=== PATIENT | male | born 1970 | race Caucasian/White ===

== ENCOUNTER 2021-05-15 10:09 | Outpatient (REF) | payer BC, SELFPAY ==
[2021-05-15 12:35] LABS: Hematocrit 42.5 % (42-52); Hemoglobin 14.1 g/dl (14.0-18.0); Mean Corpuscular HGB Conc 33.2 g/dl (31.0-36.0); Mean Corpuscular Hemoglobin 30.3 pg (27.0-33.0); Mean Corpuscular Volume 91.2 fL (80-98); Mean Platelet Volume 9.8 fL (9.4-12.4); Platelet Count 317 X10*3/uL (160-400); Red Blood Count 4.66 X10*6/uL (4.60-5.80); Red Cell Distribution Width 13.2 % (11.0-16.0); White Blood Count 5.5 X10*3/uL (4.8-10.8)
[2021-05-15 13:04] LABS: Alanine Aminotransferase 12 U/L (0-40); Albumin Level 4.3 g/dL (3.5-5.0); Alkaline Phosphatase 50 U/L (39-117); Anion Gap 13 (12-20); Aspartate Amino Transferase 21 U/L (5-37); Bilirubin Total 0.7 mg/dL (0.0-1.0); Blood Urea Nitrogen 19 mg/dL (9-16); Calcium 9.6 mg/dL (8.4-10.2); Carbon Dioxide 29 mmol/L (22-29); Chloride 103 mmol/L (96-108); Cholesterol 213 mg/dL; Estimated Glomerular Filt Rate > 60; Glucose Fasting 89 mg/dL (60-99); HDL Cholesterol 60 mg/dL; LDL Cholesterol Calculated 140 mg/dl; Potassium 5.1 mmol/L (3.3-5.1); Sodium 140 mmol/L (135-145); Total Protein 6.8 g/dL (6.5-8.0); Triglycerides 69 mg/dL
[2021-05-15 13:24] LABS: Prostate Specific Antigen 0.56 ng/mL (<0.05-4.0)
== END 2021-05-15 10:10 | disposition home or self-care (01) ==
LOC: HO.MANLDS 10:09
PROVIDERS: PCP Internal Medicine; Visit Provider Internal Medicine
DX: Z00.00 Encounter for general adult medical examination without abnormal findings (principal); Z12.5 Encounter for screening for malignant neoplasm of prostate
CPT/HCPCS: 36415; 80053; 80061; 84153; 85027

== ENCOUNTER 2022-10-21 12:02 | Outpatient (REF) | payer BC, SELFPAY ==
[2022-10-21 14:10] LABS: MANUAL DIFF FLAG NO
[2022-10-21 14:15] LABS: Basophils Percent Auto 0.6 % (0-2); Eosinophils Absolute Auto 0.1 X10*3/uL (0.0-0.4); Eosinophils Percent Auto 2.2 % (0-4); Hematocrit 44.3 % (42.0-52.0); Hemoglobin 14.7 g/dl (14.0-18.0); Imm Gran Abs Auto 0.07 X10*3/uL (0.00-0.03); Imm Gran Pct Auto 1.1 % (0.0-0.4); Lymphocytes Absolute Auto 1.2 X10*3/uL (1.2-4.9); Lymphocytes Percent Auto 19.6 % (20-40); Mean Corpuscular HGB Conc 33.2 g/dl (31.0-36.0); Mean Corpuscular Hemoglobin 29.6 pg (27.0-33.0); Mean Corpuscular Volume 89.1 fL (80.0-98.0); Mean Platelet Volume 9.9 fL (9.4-12.4); Monocytes Absolute Auto 0.7 X10*3/uL (0.1-1.2); Monocytes Percent Auto 10.3 % (2-11); Neutrophils Absolute Auto 4.2 x10*3/uL (2.0-8.3); Neutrophils Percent Auto 66.2 % (45-73); Platelet Count 299 X10*3/uL (160-400); Red Blood Count 4.97 X10*6/uL (4.60-5.80); Red Cell Distribution Width 13.2 % (11.0-16.0); White Blood Count 6.3 X10*3/uL (4.8-10.8)
[2022-10-21 14:51] LABS: Alanine Aminotransferase 13 U/L (0-40); Albumin Level 4.4 g/dL (3.5-5.0); Alkaline Phosphatase 52 U/L (39-117); Anion Gap 13 (12-20); Aspartate Amino Transferase 23 U/L (5-37); Bilirubin Total 0.8 mg/dL (0.0-1.0); Blood Urea Nitrogen 14 mg/dL (9-16); Calcium 9.4 mg/dL (8.4-10.2); Carbon Dioxide 31 mmol/L (22-29); Chloride 101 mmol/L (96-108); Cholesterol 227 mg/dL; Estimated Glomerular Filt Rate > 60; Glucose Fasting 77 mg/dL (60-99); HDL Cholesterol 61 mg/dL; LDL Cholesterol Calculated 155 mg/dl; Potassium 4.8 mmol/L (3.3-5.1); Sodium 140 mmol/L (135-145); Total Protein 6.8 g/dL (6.5-8.0); Triglycerides 59 mg/dL
[2022-10-21 15:10] LABS: Prostate Specific Antigen 0.73 ng/mL (<0.05-4.0); Thyroid Stimulating Hormone 3.18 uIU/mL (0.32-4.0); Vitamin D 25-OH Total 20.7 ng/mL (>30)
== END 2022-10-21 12:03 | disposition home or self-care (01) ==
LOC: HO.MANLDS 12:02
PROVIDERS: Visit Provider Internal Medicine
DX: Z00.00 Encounter for general adult medical examination without abnormal findings (principal); Z12.5 Encounter for screening for malignant neoplasm of prostate; E78.5 Hyperlipidemia, unspecified; E55.9 Vitamin D deficiency, unspecified; R53.83 Other fatigue
CPT/HCPCS: 36415; 80053; 80061; 82306; 84153; 84443; 85025

== ENCOUNTER 2023-09-29 09:59 | Outpatient (REF) | payer BC, SELFPAY ==
[2023-09-29 13:29] LABS: MANUAL DIFF FLAG NO
[2023-09-29 13:47] LABS: Basophils Percent Auto 0.7 % (0-2); Eosinophils Absolute Auto 0.1 X10*3/uL (0.0-0.4); Eosinophils Percent Auto 2.7 % (0-4); Hematocrit 42.4 % (42.0-52.0); Hemoglobin 14.1 g/dl (14.0-18.0); Imm Gran Abs Auto 0.01 X10*3/uL (0.00-0.03); Imm Gran Pct Auto 0.2 % (0.0-0.4); Lymphocytes Absolute Auto 0.9 X10*3/uL (1.2-4.9); Lymphocytes Percent Auto 19.8 % (20-40); Mean Corpuscular HGB Conc 33.3 g/dl (31.0-36.0); Mean Corpuscular Hemoglobin 29.8 pg (27.0-33.0); Mean Corpuscular Volume 89.6 fL (80.0-98.0); Mean Platelet Volume 9.6 fL (9.4-12.4); Monocytes Absolute Auto 0.5 X10*3/uL (0.1-1.2); Neutrophils Absolute Auto 2.9 x10*3/uL (2.0-8.3); Neutrophils Percent Auto 64.6 % (45-73); Platelet Count 308 X10*3/uL (160-400); Red Blood Count 4.73 X10*6/uL (4.60-5.80); Red Cell Distribution Width 13.2 % (11.0-16.0); White Blood Count 4.5 X10*3/uL (4.8-10.8)
[2023-09-29 14:58] LABS: Alanine Aminotransferase 11 U/L (0-40); Albumin Level 4.2 g/dL (3.5-5.0); Alkaline Phosphatase 46 U/L (39-117); Anion Gap 13 (12-20); Aspartate Amino Transferase 21 U/L (5-37); Bilirubin Total 0.6 mg/dL (0.0-1.0); Blood Urea Nitrogen 11 mg/dL (9-16); Calcium 9.6 mg/dL (8.4-10.2); Carbon Dioxide 30 mmol/L (22-29); Chloride 103 mmol/L (96-108); Cholesterol 210 mg/dL (<200); Estimated Glomerular Filt Rate > 60; Glucose Random 80 mg/dL (60-115); HDL Cholesterol 61 mg/dL (>40); LDL Cholesterol Calculated 140 mg/dL (<100); Potassium 4.4 mmol/L (3.3-5.1); Prostate Specific Antigen 0.74 ng/mL (<0.05-4.0); Sodium 142 mmol/L (135-145); Total Protein 6.9 g/dL (6.5-8.0); Triglycerides 46 mg/dL (<150)
[2023-09-29 15:07] LABS: Thyroid Stimulating Hormone 2.45 uIU/mL (0.32-4.0)
[2023-10-03 15:23] LABS: Testosterone, Total 282 ng/dL (250-1100)
== END 2023-09-29 10:00 | disposition home or self-care (01) ==
LOC: HO.MANLDS 09:59
PROVIDERS: Visit Provider Internal Medicine
DX: Z13.89 Encounter for screening for other disorder (principal)
CPT/HCPCS: 36415; 80053; 80061; 84153; 84403; 84443; 85025

== ENCOUNTER 2023-11-10 11:46 | Outpatient (REF) | payer BC, SELFPAY ==
[2023-11-10 13:55] LABS: MANUAL DIFF FLAG NO
[2023-11-10 14:01] LABS: Basophils Percent Auto 0.4 % (0-2); Eosinophils Absolute Auto 0.1 X10*3/uL (0.0-0.4); Eosinophils Percent Auto 1.3 % (0-4); Hematocrit 44.9 % (42.0-52.0); Imm Gran Abs Auto 0.05 X10*3/uL (0.00-0.03); Imm Gran Pct Auto 0.7 % (0.0-0.4); Lymphocytes Percent Auto 14.2 % (20-40); Mean Corpuscular HGB Conc 33.4 g/dl (31.0-36.0); Mean Corpuscular Hemoglobin 30.2 pg (27.0-33.0); Mean Corpuscular Volume 90.5 fL (80.0-98.0); Mean Platelet Volume 9.7 fL (9.4-12.4); Monocytes Absolute Auto 0.7 X10*3/uL (0.1-1.2); Monocytes Percent Auto 10.1 % (2-11); Neutrophils Percent Auto 73.3 % (45-73); Platelet Count 362 X10*3/uL (160-400); Red Blood Count 4.96 X10*6/uL (4.60-5.80); Red Cell Distribution Width 13.1 % (11.0-16.0); White Blood Count 6.8 X10*3/uL (4.8-10.8)
[2023-11-10 14:11] LABS: Estimated Average Glucose 103 mg/dL; Hemoglobin A1c % 5.2 % (<6.0)
[2023-11-10 14:24] LABS: Erythrocyte Sedimentation Rate 1 MM/HR (0-15)
[2023-11-10 14:31] LABS: Rheumatoid Factor 32.8 IU/mL (<15.0)
[2023-11-10 14:33] LABS: Parathyroid Hormone Intact 57.2 pg/mL (8.7-77.1)
[2023-11-10 14:40] LABS: C Reactive Protein < 0.10 mg/dL (< or = 0.50); Calcium 10.1 mg/dL (8.4-10.2); Iron 116 mcg/dL (45-160); Percent Iron Saturation 40 % (15-50); Total Iron Binding Capacity 290 mcg/dL (228-428); Unsaturated Iron Binding 174 ug/dL
[2023-11-10 14:56] LABS: Ferritin 459 ng/mL (20-250)
[2023-11-10 15:01] LABS: Folate 12.2 ng/mL (> or = 4.0); Vitamin B12 422 pg/mL (200-900)
[2023-11-11 17:48] LABS: Cyclic Citrullinated Peptide <16 UNITS
[2023-11-12 13:09] LABS: Anti Nuclear Antibody Screen NEGATIVE (NEGATIVE)
[2023-11-13 22:14] LABS: Antibody to SS-A Antigen <1.0 NEG AI (<1.0 NEG); Antibody to SS-B Antigen <1.0 NEG AI (<1.0 NEG)
== END 2023-11-10 11:47 | disposition home or self-care (01) ==
LOC: HO.MANLDS 11:46
PROVIDERS: Visit Provider Physician Assistant
DX: L63.8 Other alopecia areata (principal)
CPT/HCPCS: 36415; 82306; 82310; 82607; 82728; 82746; 83036; 83540; 83970; 85025; 85652; 86038; 86140; 86200; 86235; 86431

== ENCOUNTER 2024-03-19 14:01 | Outpatient (REF) | payer BC, SELFPAY ==
[2024-03-25 07:39] LABS: Testosterone, Total 399 ng/dL (250-1100)
== END 2024-03-19 14:02 | disposition home or self-care (01) ==
LOC: HO.MANLDS 14:01
PROVIDERS: Visit Provider Internal Medicine
DX: R53.83 Other fatigue (principal)
CPT/HCPCS: 36415; 84403

== ENCOUNTER 2025-01-25 11:44 | Outpatient (REF) | payer BC, SELFPAY ==
[2025-01-25 13:33] LABS: MANUAL DIFF FLAG NO
[2025-01-25 13:38] LABS: Basophils Percent Auto 0.3 % (0-2); Eosinophils Absolute Auto 0.1 X10*3/uL (0.0-0.4); Eosinophils Percent Auto 0.7 % (0-4); Hematocrit 40.3 % (42.0-52.0); Hemoglobin 14.1 g/dl (14.0-18.0); Imm Gran Abs Auto 0.08 X10*3/uL (0.00-0.03); Imm Gran Pct Auto 0.8 % (0.0-0.4); Lymphocytes Absolute Auto 1.2 X10*3/uL (1.2-4.9); Lymphocytes Percent Auto 11.1 % (20-40); Mean Corpuscular Hemoglobin 32.6 pg (27.0-33.0); Mean Corpuscular Volume 93.3 fL (80.0-98.0); Mean Platelet Volume 9.8 fL (9.4-12.4); Monocytes Absolute Auto 1.1 X10*3/uL (0.1-1.2); Monocytes Percent Auto 10.5 % (2-11); Neutrophils Absolute Auto 8.1 x10*3/uL (2.0-8.3); Neutrophils Percent Auto 76.6 % (45-73); Platelet Count 311 X10*3/uL (160-400); Red Blood Count 4.32 X10*6/uL (4.60-5.80); Red Cell Distribution Width 13.7 % (11.0-16.0); White Blood Count 10.5 X10*3/uL (4.8-10.8)
--- OUTSIDE RECORDS SUMMARY | 2025-01-25 14:04 | XMS_ITS | Data Portability ---
Author Organization [facility] , [facility]_Unsigned Documents Address [address] [place] [address] Assessment No assessment recorded. Plan of Treatment Reminders Order Date Submit Date Provider Last Modified By Organization Details Last Modified Time Details Appointments ANY 15 025 09:45AM Flaco Fritz MD Not available Not available Not available Lab None record ed. Referral None record ed. Procedures None record ed. Surgeries None record ed. Imaging None record ed. Medication Orders None record ed. Patient TargetsNo targets recorded. Patient InstructionsNo instructions recorded. Reason for Referral None Reported. Medical Equipment None Reported. Medications Name Sig Start Date Stop Date Status Note LastModified by Organization Details LastModified Time desonide 0.05 % topical cream APPLY SPARINGLY AND RUB GENTLY INTO THE AFFECTED AREA TWICE A DAY active Not Available Not Available No t Available betamethason e dipropionate 0.05 % topical cream APPLY 1 APPLICATION TOPICALLY TWICE A DAY FOR 14 DAYS active Not Available Not Available Not Available mupirocin 2 % topical ointment APPLY A SMALL AMOUNT TO AFFECTED AREA 3 TIMES A DAY active Not Available Not Available Not Available fluocinolone acetonide oil 0.01 % ear drops INSTILL 5 DROPS INTO AFFECTED EAR TWICE A DAY active Not Available Not Available No t Available Vitals None Recorded Social History None recorded. Functional Status None recorded. Mental Status None recorded. Family History Nothing Reported. Medical History No medical history recorded. Past Encounters Encounter ID Performer Location Encounter Start Date Encounter Closed Date Diagnosis/Indication Diagnosis SNOMED-CT Code Diagnosis ICD10 Code Diagnosis Note [id number] Flaco Fritz MD [facility] [address] [facility] [address] [place] [address] 09/19/2023 13:01:40 09/19/2023 16:12:50 Administrative reason for encounter [id number] Z02.9 [id number] Flaco Fritz MD [facility] - [address] [address] 04/06/2024 11:27:17 04/06/2024 12:40:56 Administrative reason for encounter [id number] Z02.9 [id number] Flaco Fritz MD [facility] [address] 09/21/2024 10:24:20 09/21/2024 15:03:48 Administrative reason for encounter [id number] Z02.9 Health Concerns Section Related Observation LastModified by Organization Detai ls LastModified Time None Recorded Concern Status LastModified by Organization Details LastModified Time None Recorded Advance Directives Directive None Recorded Payers Insurance Date Sequence Insurance Name Policy Number Policy Witt Covered Member ID Witt Member ID Guarantor Name 09/18/2023 1 *SELF PAY* Brittany Dillon
[2025-01-25 14:13] LABS: Alanine Aminotransferase 14 U/L (0-40); Albumin Level 4.4 g/dL (3.5-5.0); Alkaline Phosphatase 48 U/L (39-117); Anion Gap 11 (12-20); Aspartate Amino Transferase 20 U/L (5-37); Bilirubin Total 0.7 mg/dL (0.0-1.0); Blood Urea Nitrogen 15 mg/dL (9-16); Calcium 9.6 mg/dL (8.4-10.2); Carbon Dioxide 31 mmol/L (22-29); Chloride 103 mmol/L (96-108); Cholesterol 243 mg/dL (<200); Estimated Glomerular Filt Rate > 60; Glucose Random 87 mg/dL (60-115); HDL Cholesterol 73 mg/dL (>40); LDL Cholesterol Calculated 150 mg/dL (<100); Potassium 3.7 mmol/L (3.3-5.1); Sodium 141 mmol/L (135-145); Total Protein 6.6 g/dL (6.5-8.0); Triglycerides 103 mg/dL (<150)
== END 2025-01-25 11:45 | disposition home or self-care (01) ==
LOC: HO.MANLDS 11:44
PROVIDERS: Visit Provider Internal Medicine
DX: Z82.49 Family history of ischemic heart disease and other diseases of the circulatory system (principal)
CPT/HCPCS: 36415; 80053; 80061; 84153; 85025